=== PATIENT | female | born 1935 | race Caucasian/White ===

== ENCOUNTER 2017-01-03 12:14 | Observation (INO) ==
[2017-01-03] MEDS ORDERED: Aspirin 325 MG TABLET PO ONE (12:49)
[2017-01-03 13:01] LABS: Basophils # 0.1 K/mcL (0.0-0.2); Basophils % 0.6 %; Eosinophils # 0.2 K/mcL (0.0-0.6); Eosinophils % 2.3 %; Hematocrit 45.8 % (35.3-44.9); Hemoglobin 14.8 g/dL (11.5-15.4); Immature Granulocytes % 0.2 % (0-4); Lymphocytes # 2.3 K/mcL (0.6-4.6); Lymphocytes % 25.7 %; Mean Corpuscular HGB Conc 32.3 g/dL (31.6-35.5); Mean Corpuscular Hemoglobin 31.7 pg (28.0-33.3); Mean Corpuscular Volume 98.1 fL (83.0-100.0); Mean Platelet Volume 10.5 fL (9.4-12.4); Monocytes # 0.6 K/mcL (0.0-1.3); Monocytes % 7.1 %; Neutrophils # 5.7 K/mcL (1.6-8.9); Platelet Count 244 K/mcL (140-400); Red Blood Count 4.67 M/mcL (3.82-4.97); Red Cell Distribution Width 13.1 % (11.5-14.5); Segmented Neutrophils % 64.1 %
--- NOTE | 2017-01-03 13:01 | Emergency Department Note ---
Disposition Clinical Impression: Chest pain Qualifiers: Chest pain type: unspecified Qualified Code(s): R07.9 - Chest pain, unspecified Disposition: Admitted As Inpatient Condition: Fair Referrals: NO,PCP [Primary Care Provider] - Forms: ED Satisfaction Letter Time of Disposition: 15:24 Chest Pain HPI - General Chief Complaint: ED Chest Pain Stated Complaint: "thinks I have a heart attack" Time Seen by Provider: 01/03/17 12:27 Source: patient, family Limitations: no limitations Vital Signs Reviewed: Yes Nursing Notes Reviewed: Yes - History of Present Illness HPI Narrative: 81-year-old female history of hypertension, smoking, PVD, presents with chest pain at rest last 3 days, patient states that she has chest pressure for 10 across her chest feels like pressure and aching sensation. 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 She states that pain is worse after walking, especially if she tries to walk up a flight of stairs. Patient reports associated shortness of breath, generalized weakness. Pt complaint: chest pain Onset (ago): hour(s) Duration: intermittent Severity: none Severity scale (1-10): 4 Pain Radiation: none Improves with: nothing Worsens with: nothing Associated symptoms: Reports: nausea, dyspnea Treatments prior to arrival chest pain: none - Related Data Allergies Allergy/AdvReac Type Severity Reaction Status Date / Time esomeprazole [From Nexium] Allergy Nausea Verified 01/03/17 12:23 sertraline [From Zoloft] Allergy Nausea Verified 01/03/17 12:23 All systems ED: reviewed and negative except as stated. Constitutional: Reports: weakness. Denies: fever, chills ENT ED: Denies: ear pain Cardiovascular: Reports: chest pain, dyspnea on exertion, orthopnea. Denies: palpitations Respiratory: Reports: dyspnea. Denies: cough, wheezes Gastrointestinal: Denies: abdominal pain, nausea, vomiting Integumentary: Denies: rash Neurological: Denies: headache, weakness Chest Pain PMH - Past Medical History Medical history: Reports: other Psychiatric history: Reports: no psych history - Social History Smoking Status: Current every day smoker Alcohol use: Reports: none Drug use: Reports: none Physical Exam Constitutional: frail elderly female in no acute distress appears uncomfortable on exam, HEENT: NCAT, sclera anicteric, PERRLA bilaterally, normal external ears bilaterally, nasal septum nondeviated, average dentition, mucous membranes dry Neck: normal inspection, neck is supple, trachea midline Resp: normal chest inspection, CTA bilaterally, no resp distress CV: RRR, no m/g/r GI: normal inspection, Soft, NTND, BS present Back: normal inspection, no tenderness to palpation Neuro: A&O3, no gross motor or sensory deficits bilaterally Skin: No rashes, skin warm, dry, intact - General Limitations: no limitations General appearance: alert, in no apparent distress Course Course Narrative: 81-year-old female chest pain for the last 3 days, multiple medical comorbidities including hypertension hyperlipidemia, peripheral vascular disease , plan to admit slightly even if negative chest pain workup given symptoms. Aspirin given, patient defers nitroglycerin at this time. States that her pain is somewhat improved to 10 - Reevaluation(s) Reevaluation #1: CP workup negative admitted to medicine for Rule out CP Time: 15:24 Vital Signs Temperature 97.6 F 01/03/17 12:19 Pulse Rate 76 01/03/17 12:19 Respiratory Rate 16 01/03/17 12:19 Blood Pressure 172/77 01/03/17 12:19 O2 Sat by Pulse Oximetry 98 01/03/17 12:19 Temperature 97.6 F 01/03/17 12:19 Pulse Rate 67 01/03/17 15:04 Respiratory Rate 16 01/03/17 12:19 Blood Pressure 188/85 01/03/17 15:04 O2 Sat by Pulse Oximetry 97 01/03/17 15:04 Oxygen Delivery Oxygen Delivery Room Air Chest Pain - Differential Diagnosis Likely: unstable angina pectoris, atypical chest pain, st elevation myocardial infraction, costalchondritis, chest pain - Medical Records Medical records reviewed: Yes I reviewed the patient's medical records. - Lab Data Lab results reviewed: Yes I reviewed the patient's lab results. Result diagrams: 01/03/17 12:40 01/03/17 12:40 Lab Results 01/03/17 01/03/17 01/03/17 Range/Units 12:40 12:40 12:40 WBC 8.9 (4.3-11.1) K/mcL RBC 4.67 (3.82-4.97) M/mcL Hgb 14.8 (11.5-15.4) g/dL Hct 45.8 H (35.3-44.9) % MCV 98.1 (83.0-100.0) fL MCH 31.7 (28.0-33.3) pg MCHC 32.3 (31.6-35.5) g/dL RDW 13.1 (11.5-14.5) % Plt Count 244 (140-400) K/mcL MPV 10.5 (9.4-12.4) fL Immature Gran % 0.2 (0-4) % Seg Neutrophils % 64.1 % Lymphocytes % 25.7 % Monocytes % 7.1 % Eosinophils % 2.3 % Basophils % 0.6 % Neutrophils # 5.7 (1.6-8.9) K/mcL Lymphocytes # 2.3 (0.6-4.6) K/mcL Monocytes # 0.6 (0.0-1.3) K/mcL Eosinophils # 0.2 (0.0-0.6) K/mcL Basophils # 0.1 (0.0-0.2) K/mcL PT 10.3 (9.4-12.1) Seconds INR 1.0 APTT 32.8 (26.0-36.0) Seconds Sodium (136-145) mEq/L Potassium (3.5-4.5) mEq/L Chloride (98-109) mEq/L Carbon Dioxide (19-29) mEq/L BUN (7-20) mg/dL Creatinine (0.57-1.11) mg/dL Est GFR ( Amer) (> 60) Est GFR (Non-Af Amer) (> 60) BUN/Creatinine Ratio (6-26) Glucose (70-99) mg/dL Calculated Osmolality (280-300) Calcium (8.6-10.8) mg/dL Troponin I (0-0.03) ng/mL B-Natriuretic Peptide 41 (0-100) pg/mL 01/03/17 01/03/17 Range/Units 12:40 12:40 WBC (4.3-11.1) K/mcL RBC (3.82-4.97) M/mcL Hgb (11.5-15.4) g/dL Hct (35.3-44.9) % MCV (83.0-100.0) fL MCH (28.0-33.3) pg MCHC (31.6-35.5) g/dL RDW (11.5-14.5) % Plt Count (140-400) K/mcL MPV (9.4-12.4) fL Immature Gran % (0-4) % Seg Neutrophils % % Lymphocytes % % Monocytes % % Eosinophils % % Basophils % % Neutrophils # (1.6-8.9) K/mcL Lymphocytes # (0.6-4.6) K/mcL Monocytes # (0.0-1.3) K/mcL Eosinophils # (0.0-0.6) K/mcL Basophils # (0.0-0.2) K/mcL PT (9.4-12.1) Seconds INR APTT (26.0-36.0) Seconds Sodium 140 (136-145) mEq/L Potassium 4.3 (3.5-4.5) mEq/L Chloride 104 (98-109) mEq/L Carbon Dioxide 25 (19-29) mEq/L BUN 27 H (7-20) mg/dL Creatinine 1.25 H (0.57-1.11) mg/dL Est GFR ( Amer) 50 L (> 60) Est GFR (Non-Af Amer) 41 L (> 60) BUN/Creatinine Ratio 22 (6-26) Glucose 103 H (70-99) mg/dL Calculated Osmolality 295 (280-300) Calcium 9.5 (8.6-10.8) mg/dL Troponin I 0.00 (0-0.03) ng/mL B-Natriuretic Peptide (0-100) pg/mL - Radiology Data Radiology results reviewed: Yes I reviewed the patient's radiology results. Chest X-Ray 01/03/17 12:28 IMPRESSION: No acute process. D/ / Addison Gomez MD / Addison Gomez MD Interpreting Provider: Addison Gomez MD - EKG Data EKG attestation: Yes I reviewed and interpreted this EKG. EKG shows normal: sinus rhythm Rate: normal (76 bpm [place] 150 QRS of 95) Rhythm: NSR Parker/QRS: left axis deviation, RBBB When compared to previous EKG there are: previous EKG unavailable - Core Measures AMI Core Measures Followed: Yes Heart Score - Score History: Moderately Suspicious EKG: Non Specific repolarisation Disturbance Age: Greater than 65 Risk Factors: Equal/Greater than 3 risk factor or history of atherosclerotic disease Troponin: Less than normal limit HEART Score Total: 6 Attestation Statement - Attestation Attestation: I examined this patient and my medical decision-making was reviewed with the RAILWAY STATION MANAGER/PA/Advanced Practice Nurse/Resident Physician. I agree with the documented findings, disposition and treatment plan as described except to the extent set forth below. Patient emergency Department abutting a chest pain. Onset over a week ago. The patient lives in [facility]. She is here visiting family because she has an appointment with Dr. Koki Smith tomorrow for her legs. She was started on new medication open her arteries. On exam she is awake and alert. Lungs clear. Plan. Cardiac workup.
[2017-01-03 13:03] LABS: Prothrombin Time 10.3 Seconds (9.4-12.1)
[2017-01-03 13:06] LABS: Activated Partial Thrombo Time 32.8 Seconds (26.0-36.0); Calcium 9.5 mg/dL (8.6-10.8); Potassium 4.3 mEq/L (3.5-4.5)
[2017-01-03] MEDS ORDERED: Nitroglycerin 0.4 MG TAB.SUBL SL ONE (14:34)
[2017-01-03] MEDS ORDERED: Nitroglycerin 0.4 MG TAB.SUBL SL PRN (16:04)
--- NOTE | 2017-01-03 16:08 | Internal Med History&Physical ---
Date of Encounter: 01/03/17 Time of Encounter: 15:30 Assessment and Plan (1) Chest pain Current visit: Yes Status: Acute Acute chest pain. High risk for coronary artery disease and ACS. Will trend troponins. Observe in hospital overnight with telemetry. Monitor vital signs. Plan for stress test in the morning. Check lipid profile and A1c. Daily aspirin. Qualifiers: Chest pain type: precordial pain Qualified Code(s): R07.2 - Precordial pain (2) Essential hypertension Current visit: Yes Status: Chronic Blood pressure is currently uncontrolled. Will resume home medications. If persistently elevated greater than 160 mm Hg systolic, will add intravenous medications to control blood pressure better. We will adjust antihypertensive regimen accordingly. (3) Peripheral vascular disease Current visit: Yes Status: Chronic Continue cilostazol and aspirin. (4) Tobacco abuse Current visit: Yes Status: Chronic Consulted about cessation. Offered nicotine patch but patient does not want it at this time. Internal Medicine - H&P: HPI Chief complaint: Chest pain Admitted From: Emergency Dept Plans for Post Hospital Care: Home History of present illness: Ms. Knight is a 81 year old female patient with a history of peripheral vascular disease, chronic smoker, hypertension presented to the ER with complaints of chest pain. Her pain has been going on for 3 days. It is pressure-like pain that is constantly present both at rest and with exertion. It does not radiate but gets worse when she tries to walk a flight of stairs. She does have some shortness of breath. No cough or sputum production at this time. She does feel weak overall. She has occasional palpitations. No nausea or vomiting. No fever or chills. No abdominal pain. She has had similar kind of chest pain before and was worked up with a stress test last year. She did not receive a call back from the doctor so she has urine that this test was normal. She occasionally gets some swelling in her legs. No orthopnea or PND. Past Med Surg Social Fam HX - Past Medical History Attestation: Yes The following information was validated with the patient. Medical history: hypertension, other (Peripheral vascular disease) Psychiatric history: no psych history - Past Surgical History Surgical History: herniorrhaphy - Social History Smoking Status: Current every day smoker Smokeless Tobacco Status: No Alcohol use: none Drug use: none - Additional Family History Additional family history: Reviewed and found to be noncontributory at this time Internal Medicine - H&P: Meds Aspirin [Lo-Dose Aspirin EC] 81 mg PO DAILY 01/03/17 [History] Cilostazol [Pletal] 100 mg PO BID 01/03/17 [History] Lisinopril [Zestril] 5 mg PO DAILY 01/03/17 [History] Ropinirole HCl [Requip] 5 mg PO HS 01/03/17 [History] Allergies esomeprazole [From Nexium] Allergy (Verified 01/03/17 12:23) Nausea sertraline [From Zoloft] Allergy (Verified 01/03/17 12:23) Nausea All Systems PM: A 10-system review of systems was performed and is negative for pertinent findings except as documented above in the HPI. - Constitutional Constitutional: malaise, weakness, no chills, no fever(s), no night sweats - EENT Eyes: no change in vision, no discharge, no pain, no photophobia Ears: no ear discharge, no ear pain, no tinnitus Nose, mouth and throat: no dysphagia, no nasal discharge, no neck pain, no sore throat - Cardiovascular Cardiovascular ROS IM: chest pain, no diaphoresis, no dyspnea, no lightheadedness, no palpitations, no syncope - Respiratory Respiratory: no cough, no dyspnea, no wheezing, no excessive phlegm production - Gastrointestinal Gastrointestinal: no abdominal pain, no diarrhea, no hematemesis, no hematochezia, no melena, no nausea, no vomiting - Genitourinary Genitourinary: no change in urinary stream, no dysuria, no flank pain, no hematuria - Musculoskeletal Musculoskeletal ROS IM: no numbness, no tingling - Integumentary Integumentary IM: no rash, no unusual bruising - Neurological Neurological ROS: no confusion, no convulsions, no focal weakness, no numbness, no tingling, no tremor(s) - Hematologic/Lymphatic Hematologic/Lymphatic: no easy bruising - Constitutional Vitals: Temp Pulse Resp BP Pulse Ox 97.6 F 67 16 188/85 97 01/03/17 12:19 01/03/17 15:04 01/03/17 12:19 01/03/17 15:04 01/03/17 15:04 General appearance: Present: cooperative, mild distress, A&O X 3, answers questions appropriately - Neck Neck exam general surgery: Present: supple, trachea midline. Absent: lymphadenopathy - Respiratory Respiratory exam: Present: CTAB, prolonged expiratory phase. Absent: accessory muscle use, rales, rhonchi, wheezes - Cardiovascular Cardiovascular exam: Present: RRR, +S1, +S2. Absent: diastolic murmur, gallop, rubs, systolic murmur - GI/Abdominal GI/Abdominal exam: Present: normal bowel sounds, soft, no peritoneal signs. Absent: distended, tenderness - Extremities Exam Extremities exam: Present: warm, radial pulses palpable and symetrical. Absent : calf tenderness, cyanotic, pedal edema - Neurological Exam Neurological exam: Present: CN II-XII intact, oriented X3, no focal deficits, strengths equal and symetr throughout. Absent: facial droop, speech deficit - Skin Skin exam: Present: dry, intact Internal Med - H&P Results - Labs CBC & Chem 7: 01/03/17 12:40 01/03/17 12:40 Labs: Short CBC 01/03/17 Range/Units 12:40 WBC 8.9 (4.3-11.1) K/mcL Hgb 14.8 (11.5-15.4) g/dL Hct 45.8 H (35.3-44.9) % Plt Count 244 (140-400) K/mcL Neutrophils # 5.7 (1.6-8.9) K/mcL BMP 01/03/17 12:40 Sodium 140 Potassium 4.3 Chloride 104 Carbon Dioxide 25 BUN 27 H Creatinine 1.25 H Glucose 103 H Calcium 9.5 Cardiac Enzymes 01/03/17 Range/Units 12:40 Troponin I 0.00 (0-0.03) ng/mL - EKG Data EKG comments: 01/03/17 16:16 Right bundle-branch block - Impressions ITS Impressions Chest X-Ray 01/03/17 12:28 IMPRESSION: No acute process. D/ / Addison Gomez MD / Addison Gomez MD Interpreting Provider: Addison Gomez MD - Attending Attestation This document has been at least partially created by Dragon medical voice recognition technology by Dr. Rocha. Errors in grammar, wording or other phrases may exist. If errors are found after the documentation is signed, they will be addressed individually in the addendum section of this document when appropriate.
[2017-01-03] MEDS: 0.9 % Sodium Chloride 1,000 ML IVC SCH (18:21)
[2017-01-03] MEDS ORDERED: rOPINIRole 1 MG TABLET PO SCH (21:00)
[2017-01-04] MEDS ORDERED: Ondansetron 4 MG/2 ML VIAL IV PRN (00:40)
[2017-01-04 00:42] LABS: Chol/HDL Ratio 3.7 (0-4.9)
[2017-01-04] MEDS ORDERED: *HR* Promethazine 25 MG/ML VIAL IVP PRN (04:41)
[2017-01-04] MEDS ORDERED: Regadenoson 0.4 MG/5 ML SYRINGE IVP ONE (06:11)
[2017-01-04] MEDS ORDERED: Aspirin Enteric Coated 81 MG Tablet PO SCH (09:00)
--- NOTE | 2017-01-04 10:00 | ECHO - Doppler Report ---
Echocardiogram Name: Brenda Knight Date of Study: 01/04/2017 Date: 1935 Ht: 67.0 in Medical Record#: [id number] Age: 81 Wt: 154.0 lb Gender: Female BSA: 1.81 Order #: [id number] Location: [facility] Room #: 3B13 Reading Physician: Loli Negrete DO Chapter Relations Administrator: Blake Diego Ordering Physician: Rajeev Rocha MD Primary Physician: None Indications: Chest pain Impressions: LVEF 65%. Normal left ventricular size and systolic function. There is evidence of mild diastolic dysfunction of the left ventricle. Dilated RV size with normal function. No significant valvular dysfunction. No pulmonary hypertension. Left Ventricular Wall Motion: Rest Echo Findings All wall segments showed normal motion. Findings: Study Quality * Technically adequate exam. ECG Findings * Normal sinus rhythm. Left Ventricle * LVEF 65%. * Normal LV chamber size, wall thickness and function. * Mild left ventricular diastolic dysfunction. Mitral Valve * Normal mitral valve structure. * No mitral stenosis. * No mitral regurgitation. Aorta * Normally sized aortic root. Aortic Valve * No aortic regurgitation. * Trileaflet aortic valve. * Mildly calcified aortic valve leaflets. * No aortic stenosis. Tricuspid Valve * Tricuspid valve not well visualized. * Trace tricuspid regurgitation. Pulmonic Valve * Pulmonic valve is not well visualized. * No pulmonic stenosis. * Trace pulmonic regurgitation. Pulmonary Artery * Pulmonary artery not well visualized. Right Ventricle * RV is dilated with darrion function. Right Atrium * Normal right atrial size. Left Atrium * Mildly dilated left atrium. Pericardium * There is no pericardial effusion present. Interatrial Septum * Interatrial septum not well evaluated. IVC * The IVC is not dilated. History Hypertension Hypercholesteremia History of Smoking Years 62 Packs 0.5 Family History of CAD Measurements: BP: 117/ 71 2D Normal Values IVSd: 1.20 cm 0.6 - 1.0 cm LVIDd: 4.80 cm 3.7 - 5.6 cm LVPWd: 1.20 cm 0.6 - 1.1 cm LVIDs: 3.30 cm 1.5 - 3.6 cm AO: 1.90 cm < 4.0 cm %FS: 31.30 cm >25 % LA volume: Mitral Valve Peak E:.69 m/sec Peak A:.88 m/sec E/A Ratio:0.8 Peak E' Lat Ted:6.73 cm/s Peak E' Med Ted:4.48 cm/s E/E' Lat Ratio:10.3 E/E' Med Ratio:15.4 Tricuspid Valve TV Regurg Peak Grad: 26.00mmHg TV Regurg Peak Ted: 2.57m/sec Updated by Loli Negrete on 01/04/2017 9:56:08 AM electronically signed on 01/04/2017 9:56:39 AM with status of Final Wall Motion Pink: 1=Normal, 2=Hypokinesis, 3=Akinesis, 4=Dyskinesis, 5=Aneurysmal, 6=Hyperkinetic, X=Not Visualized (Blank)=Missing
[2017-01-04 10:47] VITALS: BP 156/61
[2017-01-04] MEDS: 0.9 % Sodium Chloride 1,000 ML IVC SCH (11:02)
--- NOTE | 2017-01-04 11:37 | Nuclear Medicine Stress Report ---
Regadenoson Nuclear Stress Name: Brenda Knight Date of Study: 01/04/2017 Date: 1935 Ht: 67.0 in Medical Record#: [id number] Age: 81 Wt: 155.0 lb Gender: Female Order #: [id number] Location: [facility] Room: [facility] Supervising Provider: Darryn Miller CNP Reading Physician: Loli Negrete DO Ordering Physician: Chasity Estevez CNP Primary Care Physician: None Stress Technologist: Phoebe Zamarripa FRONT SERVICES AGENT, CCT Business Analyst Manager: Aziza Garcia Indications: Chest Pain Impression: Perfusion imaging was negative for ischemia or infarct. Pharmacologic ECG was negative for ischemia at the level of heart rate achieved. Patient described chest pain. This can be a nonspecific finding during pharmacologic stress. Recommend clinical correlation. Gated EF = >70%. History: Hypertension Hypercholesteremia History of Smoking Stress Test Summary: Stress Test Type: Pharmacologic Regadenoson 0.4mg/5ml given IV Baseline Information: Initial Heart Rate: 87 Blood Pressure: 162/80 Stress Information: Test Terminated Due to (primary): As per protocol Maximum Blood Pressure: 126/80 Maximum Heart Rate: 95 Percent Maximum Heart Rate Achieved: 67 Double Product: [id number] METS Reached: 1 Symptoms: TIGHTNESS Nuclear Summary: SPECT myocardial perfusion imaging using Tc99m Sestamibi given intravenously was performed at rest and following cardiac stress testing. The resting images were obtained following initial dose of 10 mCi. Following stress an additional dose of 33.1 mCi was given at peak exercise or 30 seconds post regadenoson infusion. Medication Given: Time Medication Dose Units Route Findings: Stress Note * Resting ECG demonstrated normal sinus rhythm. There is artifact on resting ECG. * Pharmacologic stress ECG is negative for ischemia at level of heart rate achieved. * Rare PACs noted during stress. * Patient had chest pain/pressure during stress. Hemodynamic responses * Hypertensive blood pressure before starting, 162/80. Blood pressure normalized during remainder of test. Decrease in blood pressure with pharmacologic infusion is a nonspecific finding. Study Quality * Study quality is good. Gated EF > 70% * Gated EF > 70%. Left Ventricle * The left ventricle is not dilated. TID * No evidence of transient ischemic dilatation. Lung Uptake * There is no evidence of increase lung uptake. NORMALS * Normal wall motion. * Normal segmental perfusion in stress. * Normal Segmental Perfusion in rest. Updated by Loli Negrete on 01/04/2017 11:28:31 AM electronically signed on 01/04/2017 11:31:15 AM with status of Final
--- NOTE | 2017-01-04 12:24 | Electrocardiograph Report ---
[place] [employer] Test Date: 2017-01-03 Pat Name: Brenda Knight Department: 104 Room: 3B13 Gender: F Rehabilitation Physician: : 1935 Requested By: Glen Ramos Order Number: [id number] Reading MD: Jonny Nelson DO Measurements Intervals [place] Rate: 76 P: 44 CT: 150 QRS: -37 QRSD: 97 T: 39 QT: 378 QTc: 408 Interpretive Statements SINUS RHYTHM WITH SINUS ARRHYTHMIA MARKED LEFT AXIS DEVIATION INCOMPLETE RIGHT BUNDLE BRANCH BLOCK Electronically Signed On 01-04-2017 12:22:46 EDT by Jonny Nelson DO
--- NOTE | 2017-01-04 13:14 | Discharge Summary ---
Date of Encounter: 01/04/17 Time of Encounter: 12:45 - Discharge Diagnosis (1) Chest pain Priority: Primary Status: Resolved Comments: Patient has denied chest pain or shortness of breath throughout this admission. Stress test negative. ACS ruled out. Qualifiers: Chest pain type: precordial pain Qualified Code(s): R07.2 - Precordial pain (2) Esophageal spasm Priority: Primary Status: Suspected (3) GERD (gastroesophageal reflux disease) Priority: Secondary Status: Chronic Comments: Patient stating she is unable to take Nexium secondary to GI upset. She takes Tums on a regular basis, offered her a PPI however she declined (4) ASA (acute kidney injury) Priority: Primary Status: Chronic Comments: I do not have prior lab results to determine whether she has chronic kidney disease though suspect she is chronic kidney disease stage III. Recommend follow-up outpatient with her primary care team in [place] (5) Essential hypertension Priority: Secondary Status: Chronic Comments: Continue lisinopril 5 mg daily, follow-up outpatient, appears controlled (6) Peripheral vascular disease Priority: Secondary Status: Chronic Comments: Following up with Dr. Jorge later today (7) Tobacco abuse Priority: Secondary Status: Chronic Comments: Continues to smoke 1 pack every 2-3 days. She declines counseling - Discharge Medications Prescriptions: Ondansetron ODT [Zofran ODT] 4 mg SL Q6HR PRN #10 tab.rapdis PRN Reason: Nausea And Vomiting Home Medications: Aspirin [Lo-Dose Aspirin EC] 81 mg PO DAILY 01/03/17 [History] Cilostazol [Pletal] 100 mg PO BID 01/03/17 [History] Lisinopril [Zestril] 5 mg PO DAILY 01/03/17 [History] Ropinirole HCl [Requip] 5 mg PO HS 01/03/17 [History] Ondansetron ODT [Zofran ODT] 4 mg SL Q6HR PRN #10 tab.rapdis 01/04/17 [Rx] Allergies/Adverse Reactions: Allergies esomeprazole [From Nexium] Allergy (Verified 01/03/17 12:23) Nausea sertraline [From Zoloft] Allergy (Verified 01/03/17 12:23) Nausea Date of admission: 01/03/17 16:24 Primary care physician: PCP NO Discharging clinician: Alba Tellez Anticipated date of discharge: 01/04/17 - Patient Status Disposition: Home, Self-Care Condition: Fair Functional capacity at discharge: independent ambulation Overall status at discharge: patient is back to baseline - Discharge Instructions Follow Up With: Bandar Jorge MD [Partnered Physician] - Additional Instructions: Follow-up with vascular today, follow-up with primary care provider in [place] within 1-2 weeks - Diet and Activity Activity: increase activity as tolerated Diet: low fat, low cholesterol, low salt diet Hospital course: Ms. Knight is a 81 year old female with past medical history of PVD, hypertension, tobacco abuse. Patient presented to the emergency department chief complaint of chest pain on and off for the past 3 days. Patient stated he was pressure-like and constant and present both at rest and with exertion. Patient stated the pain does not radiate but got worse when she attempted to walk up a flight of stairs. Associated symptoms include shortness of breath. Patient denies coughing or sputum production. Workup in the emergency department unremarkable. Chest x-ray negative. Patient was admitted to the hospitalist service for further evaluation and management. Echocardiogram unremarkable with ejection fraction of 65% and mild diastolic dysfunction. Patient euvolemic on examination throughout this admission. Patient denied chest pain or shortness of breath above her norm throughout this admission. Troponins negative. Nuclear Stress test negative for ischemia or infarct. Acute coronary syndrome ruled out. In further discussion with the patient, she states that she has to take Tums on a regular basis and states that she cannot take Nexium due to adverse reaction of vomiting. She was offered a PPI but declined. Likely cause of patient's chest pressure and epigastric secondary to uncontrolled GERD. She is discharged home in stable condition with close outpatient follow-up recommended. Of note, she will be leaving today and going to her outpatient appointment with Dr. Jorge. ITS Impressions Chest X-Ray 01/03/17 12:28 IMPRESSION: No acute process. D/ / Addison Gomez MD / Addison Gomez MD Interpreting Provider: Addison Gomez MD Echocardiogram impressions: LVEF 65%. Normal left ventricular size and systolic function. There is evidence of mild diastolic dysfunction of the left ventricle. Dilated RV size with normal function. No significant valvular dysfunction. No pulmonary hypertension. Regadenoson nuclear stress test impression: Perfusion imaging was negative for ischemia or infarct. Pharmacologic ECG was negative for ischemia at the level of heart rate achieved. Patient describes chest pain. This can be a nonspecific finding during pharmacologic stress. Recommend clinical correlation. Gated ejection fraction is greater than 70%. - Time Spent with Patient Total time spent providing and/or coordinating discharge services: - Constitutional Vitals: Temp Pulse Resp BP Pulse Ox 97.9 F 61 16 156/61 96 01/04/17 10:44 01/04/17 10:44 01/04/17 10:44 01/04/17 10:44 01/04/17 11:03 General appearance: Present: cooperative, A&O X 3, pleasant, no acute distress, answers questions appropriately - Head Head exam: Present: atraumatic, normocephalic - Eye Eye exam: Present: PERRL, conjuntiva pink, sclera anicteric Pupils: Present: PERRL - Neck Neck exam general surgery: Present: supple, trachea midline. Absent: lymphadenopathy - Respiratory Respiratory exam: Present: decreased breath sounds, wheezes. Absent: accessory muscle use, rales, respiratory distress, rhonchi - Cardiovascular Cardiovascular exam: Present: RRR, +S1, +S2. Absent: diastolic murmur, gallop, rubs, systolic murmur - GI/Abdominal GI/Abdominal exam: Present: normal bowel sounds, soft, no peritoneal signs. Absent: distended, tenderness - Extremities Exam Extremities exam: Present: warm, radial pulses palpable and symetrical. Absent : calf tenderness, cyanotic, pedal edema - Neurological Exam Neurological exam: Present: alert, CN II-XII intact, normal gait, oriented X3, no focal deficits, strengths equal and symetr throughout. Absent: pronater drift, facial droop, speech deficit - Skin Skin exam: Present: dry, intact, normal color, warm
--- NOTE | 2017-01-04 15:49 | Electrocardiograph Report ---
[place] [id number] Test Date: 2017-01-04 Pat Name: Brenda Knight Department: 113 Room: 3B13 Gender: F Pier Master: [id number] : 1935 Requested By: Rajeev Rocha Order Number: [id number] Reading MD: Adali Varela Measurements Intervals [place] Rate: 60 P: 68 NC: 154 QRS: -25 QRSD: 102 T: 60 QT: 405 QTc: 407 Interpretive Statements SINUS RHYTHM BORDERLINE LEFT AXIS DEVIATION Electronically Signed On 01-04-2017 15:47:29 EDT by Adali Varela
== END 2017-01-04 14:03 | disposition home or self-care (01) ==
LOC: EMEROO 12:14 → 3BNU 12:14 → SUATTDRO 16:24 → 3BNU 16:52
PROVIDERS: ADMIT Internal Medicine; ATTEND Nurse Practitioner Family